=== PATIENT | male | born 1995 | race African-American/Black ===

== ENCOUNTER 2021-12-31 19:02 | Emergency (ER) | payer OTHER ==
[~2021-12-31] VITALS: Ht 175.3 cm; Wt 88.6 kg
--- NOTE | 2021-12-31 19:23 | NUR ---
SPOKE TO DR CRENSHAW. HE GAVE VO FOR HEAD AND FACIAL CT
--- NOTE | 2021-12-31 19:50 | NUR ---
CALLED [facility] FOR POSSIBLE TRANSFER
[2021-12-31 20:16] LABS: BASOPHILS % (AUTO) 0.5 % (0-1); EOSINOPHILS % (AUTO) 0.6 % (0-6); HEMATOCRIT 50.2 % (42.0-52.0); HEMOGLOBIN 16.8 g/dl (14.0-17.9); LYMPHOCYTES # (AUTO) 1.1 X10'3 (1.1-4.8); LYMPHOCYTES % (AUTO) 14.7 % (21-51); MEAN CORPUSCULAR HEMOGLOBIN 31.2 PG (27.0-31.0); MEAN CORPUSCULAR HGB CONC 33.5 g/dL (33.0-36.5); MEAN CORPUSCULAR VOLUME 93.1 FL (78-98); MEAN PLATELET VOLUME 9.6 FL (7.4-10.4); MONOCYTES # (AUTO) 0.5 X10'3 (0-0.9); MONOCYTES % (AUTO) 6.2 % (2-12); NEUTROPHILS # (AUTO) 5.8 X10'3 (1.8-7.7); PLATELET COUNT 205 X10'3 (140-440); RED BLOOD COUNT 5.39 X10'6 (4.70-6.10); RED CELL DISTRIBUTION WIDTH 13.9 % (11.5-14.5); WHITE BLOOD COUNT 7.4 X10'3 (4.5-11.0)
[2021-12-31 20:27] LABS: APTT 22 SECONDS (22-32)
[2021-12-31 20:30] LABS: ALANINE AMINOTRANSFERASE 51 U/L (12-78); ALBUMIN 4.7 G/DL (3.4-5.0); ALBUMIN/GLOBULIN RATIO 1.3 (1.1-1.5); ALKALINE PHOSPHATASE 59 IU/L (46-116); ANION GAP 13 (8-16); ASPARTATE AMINO TRANSFERASE 33 U/L (10-37); BILIRUBIN,TOTAL 0.3 MG/DL (0.1-1.0); BLOOD UREA NITROGEN 12 MG/DL (7-18); BUN/CREATININE RATIO 12.9 (5.4-32.0); CHLORIDE 107 MMOL/L (99-107); CREATININE 0.93 MG/DL (0.60-1.10); ETHANOL 0.158 GM/DL (0.0-0.010); GLUCOSE 80 MG/DL (70-104); POTASSIUM 3.9 MMOL/L (3.5-5.1); SODIUM 144 MMOL/L (135-145); TOTAL CARBON DIOXIDE 23.7 MMOL/L (24-32); TOTAL PROTEIN 8.4 G/DL (6.4-8.2); eGFR > 90 ML/MIN
--- NOTE | 2021-12-31 20:32 | NUR ---
RN to RN report given to Nidhi Calix RN at [facility] ER. Patient departing
[2021-12-31 20:34] VITALS: BP 130/94
== END 2021-12-31 20:35 | disposition short-term general hospital (02) ==
LOC: ER 19:04
DX: S02.0XXA Fracture of vault of skull, initial encounter for closed fracture (principal); Z20.822 Contact with and (suspected) exposure to COVID-19; I60.8 Other nontraumatic subarachnoid hemorrhage; Y04.8XXA Assault by other bodily force, initial encounter; Y93.89 Activity, other specified; Y92.89 Other specified places as the place of occurrence of the external cause; Y99.8 Other external cause status
CPT/HCPCS: 36415; 70450; 70486; 71045; 80053; 80320; 85025; 85610; 85730; 86885; 86900; 86901; 87635; 93005; 99285; C9803

== ENCOUNTER 2023-10-13 15:08 | Emergency (ER) | payer BC, OTHER ==
[~2023-10-13] VITALS: Ht 175.3 cm; Wt 95.0 kg
[2023-10-13 15:09] VITALS: BP 159/112; PULSE 108; RESP 16; TEMP 98.7; O2SAT 97
== END 2023-10-13 15:58 | disposition home or self-care (01) ==
LOC: ER 15:09
DX: S61.211A Laceration without foreign body of left index finger without damage to nail, initial encounter (principal); W26.0XXA Contact with knife, initial encounter; Y93.89 Activity, other specified; Y92.89 Other specified places as the place of occurrence of the external cause; Y99.8 Other external cause status
CPT/HCPCS: 99281; J7030; A6449

== ENCOUNTER 2023-10-17 14:39 | Emergency (ER) | payer OTHER ==
[~2023-10-17] VITALS: Ht 175.3 cm; Wt 96.4 kg
[2023-10-17 14:44] VITALS: BP 165/123; PULSE 118; RESP 16; TEMP 98.6; O2SAT 97
== END 2023-10-17 16:00 | disposition home or self-care (01) ==
LOC: ER 14:40
DX: S61.211D Laceration without foreign body of left index finger without damage to nail, subsequent encounter (principal); V89.2XXD Person injured in unspecified motor-vehicle accident, traffic, subsequent encounter
CPT/HCPCS: 99281

== ENCOUNTER 2024-07-05 17:37 | Emergency (ER) | payer OTHER ==
[~2024-07-05] VITALS: Ht 175.3 cm; Wt 110.0 kg
[2024-07-05] MEDS ORDERED: levetiracetam inj 1,500 MG in normal saline 100ml IV soln 100 ML IV ONE (18:00)
[2024-07-05] MEDS ORDERED: levetiracetamNACL 1500mg/100mL 100 ML IV ONE (18:03)
[2024-07-05 18:13] LABS: BASOPHILS # (AUTO) 0.1 X10'3 (0-0.2); BASOPHILS % (AUTO) 0.8 % (0-1); EOSINOPHILS # (AUTO) 0.1 X10'3 (0-0.9); LYMPHOCYTES # (AUTO) 4.5 X10'3 (1.1-4.8); MEAN PLATELET VOLUME 10.3 FL (7.4-10.4); MONOCYTES # (AUTO) 0.8 X10'3 (0-0.9); PLATELET COUNT 283 X10'3 (140-440); RED CELL DISTRIBUTION WIDTH 13.7 % (11.5-14.5)
[2024-07-05 18:15] LABS: EOSINOPHILS % (AUTO) 0.7 % (0-6); HEMATOCRIT 47.3 % (42.0-52.0); HEMOGLOBIN 15.6 g/dl (14.0-17.9); LYMPHOCYTES % (AUTO) 37.4 % (21-51); MEAN CORPUSCULAR HEMOGLOBIN 31.2 PG (27.0-31.0); MEAN CORPUSCULAR HGB CONC 33.1 g/dL (33.0-36.5); MEAN CORPUSCULAR VOLUME 94.4 FL (78-98); MONOCYTES % (AUTO) 6.8 % (2-12); NEUTROPHILS # (AUTO) 6.6 X10'3 (1.8-7.7); NEUTROPHILS % (AUTO) 54.3 % (42-75); RED BLOOD COUNT 5.01 X10'6 (4.70-6.10); WHITE BLOOD COUNT 12.1 X10'3 (4.5-11.0)
[2024-07-05 18:27] LABS: ALBUMIN 4.6 G/DL (3.4-5.0); ANION GAP 31 (8-16); BLOOD UREA NITROGEN 12 MG/DL (7-18); BUN/CREATININE RATIO 8.1 (10.0-20.0); CALCIUM 8.6 MG/DL (8.5-10.1); CHLORIDE 100 MMOL/L (99-107); CREATININE 1.49 MG/DL (0.60-1.10); GLUCOSE 169 MG/DL (70-104); POTASSIUM 3.9 MMOL/L (3.5-5.1); SODIUM 142 MMOL/L (135-145); eCRCL 74 ML/MIN; eGFR 68 ML/MIN
[2024-07-05] MEDS: normal saline 1000ml 1,000 ML IV ONE (19:22)
[2024-07-05] MEDS: LACOSAMIDE 50 MG TABLET PO ONE (19:24)
[2024-07-05 21:04] VITALS: BP 151/99; PULSE 105; RESP 21; TEMP 98.2; O2SAT 97
== END 2024-07-05 21:07 | disposition home or self-care (01) ==
LOC: ER 17:38
DX: G40.909 Epilepsy, unspecified, not intractable, without status epilepticus (principal); Z72.89 Other problems related to lifestyle
CPT/HCPCS: 36415; 80048; 85025; 93005; 99284; J7030